=== PATIENT | female | born 1950 | race Caucasian/White ===

== ENCOUNTER 2020-07-19 13:44 | Inpatient (IN) ==
[2020-07-19] MEDS ORDERED: HYDROmorphone 0.5 MG/0.5 ML SYRINGE IV PRN (14:02)
[2020-07-19] MEDS ORDERED: ONDANSETRON 4 MG/2 ML VIAL IV ONE (14:02)
[2020-07-19] MEDS ORDERED: 0.9 % SODIUM CHLORIDE 1,000 ML IV ONE (14:02)
--- NOTE | 2020-07-19 14:27 | XRay Report ---
CLINICAL INFORMATION: hip fracture, fall COMPARISON: None. FINDINGS: The heart is moderately enlarged. Mediastinum and pulmonary vessels are normal. Lungs are clear. No effusions or evidence of pneumothorax. No evidence of fracture IMPRESSION: Moderate cardiomegaly. No post traumatic change or acute pulmonary disease Interpreted and Authenticated by: Patrick Polk 07/19/20
[2020-07-19 14:57] LABS: Basophils # (Auto) 0.01 K/mcL (0.00-0.20); Basophils % (Auto) 0.1 % (0.0-2.0); Eosinophils # (Auto) 0 K/mcL (0.00-0.70); Eosinophils % (Auto) 0 % (0.0-7.0); Hematocrit 41.4 % (36.0-48.0); Hemoglobin 13.5 g/dL (12.0-15.0); Lymphocytes # (Auto) 0.62 K/mcL (1.50-4.80); Lymphocytes % (Auto) 4.6 % (15.0-49.0); Mean Cell Volume 92.6 fL (80.0-100.0); Mean Corpuscular HGB Conc 32.6 g/dL (31.0-36.0); Monocytes # (Auto) 0.54 K/mcL (0.10-0.90); Neutrophils % (Auto) 91.3 % (38.0-78.0); Platelet Count 281 K/mcL (140-440); RBC 4.47 M/mcL (4.00-5.20); WBC 13.6 K/mcL (4.5-11.0)
--- NOTE | 2020-07-19 15:10 | Emergency Department Note ---
Fall HPI General Chief Complaint: Fall Stated Complaint: Right Hip Pain Time Seen by Provider: 07/19/20 14:01 Source: patient Mode of arrival: ambulatory History of Present Illness HPI Narrative: Narrative: 70-year-old female comes in complaining of a right hip fracture after a fall this morning. She has some known balance issues and trip ped in her hallway falling onto her right hip. Her was there and brought her to [facility] urgent care. They did a CT scan and advised her she had broken her hip. They called Dr. Coleman who advised her to come here. Patient tells me she has osteoporosis but is not on any other home medicines. She is legally blind as well. She denies any recent illness or fever Related Data Home Medications Medication Instructions Recorded Confirmed No Known Home Meds 07/19/20 07/19/20 Allergies Allergy/AdvReac Type Severity Reaction Status Date / Time Penicillins Allergy Mild Rash Verified 07/19/20 13:46 aspirin Allergy Unknown Other Verified 07/19/20 13:47 NSAIDS (Non-Steroidal Allergy Unknown Other Verified 07/19/20 13:47 Anti-Inflamma Review of Systems ROS ROS Narrative: Narrative: All systems ED: reviewed and negative except as stated. [facility] Narrative Patient History Narrative: Narrative: Medical/Surgical/Family History All Active Problems (Updated 07/19/20 @ 15:28 by Favio Combs MD) Closed fracture of right hip (Acute) Acute hypokalemia (Acute) Osteoporosis (Acute) Surgical History (Updated 07/19/20 @ 15:07 by Favio Combs MD) History of hysterectomy (Acute) Social History Smoking Status: Never smoker Exam Narrative Narrative: Narrative: No acute distress resting. Normocephalic atraumatic. Conjunctive are clear sclerae white nonicteric. She is blinking her eyelids frequently. Does not look like she is focusing on me as her vision is impaired, but extraocular movements are intact. No nasal discharge or congestion. Oropharynx pink and moist. Tongue is midline. Face is symmetrical. Heart is regular rate and rhythm no murmur appreciated. Lungs are clear to auscultation bilaterally without wheezes rales rhonchi or respiratory distress. Diminished soft nontender nondistended. Palpation of the right hip area does show tenderness. Posterior tibialis pulse on the right is normal. She is alert oriented able to answer questions appropriately. I do not see any focal neurologic deficits besides her impaired vision Course Vital Signs Vital signs: Vital Signs Temperature 97.5 F 07/19/20 13:48 Pulse Rate 105 H 07/19/20 13:48 Respiratory Rate 18 07/19/20 13:48 Blood Pressure 146/90 07/19/20 13:48 Pulse Oximetry (%) 94 07/19/20 13:48 Temperature 97.5 F 07/19/20 13:48 Pulse Rate 112 H 07/19/20 15:25 Respiratory Rate 18 07/19/20 13:48 Blood Pressure 141/96 07/19/20 15:25 Pulse Oximetry (%) 90 07/19/20 15:25 MDM MDM Narrative Medical decision making narrative: Narrative: Right hip fracture. Briefly discussed with Dr. Coleman. He advised me he would contact anesthesia to find out when we could take the patient back for surgery. She last ate about 10:00 AM. She declined pain medicine but I did write for Dilaudid Zofran IV fluids. Routine laboratory chest x-ray EKG also ordered. Dr. Coleman wanted plain film x-rays of the right hip so these are ordered as well X-ray confirms femoral neck fracture on the right. Mild leukocytosis consistent with stress. She does have some mild hypokalemia as well ordered K rider. EKG shows some chronic findings. Patient will go back to the operating room now Medical Records Medical records reviewed: Yes I reviewed the patient's medical records. Medical records narrative: I reviewed CT report from [facility] which showed transcervical femoral neck fracture on the right-this is minimally displaced Lab Data Lab results reviewed: Yes I reviewed the patient's lab results. Result diagrams: 07/19/20 14:22 07/19/20 14:22 Labs: Lab Results 07/19/20 07/19/20 Range/Units 14:22 14:22 WBC 13.6 H (4.5-11.0) K/mcL RBC 4.47 (4.00-5.20) M/mcL Hgb 13.5 (12.0-15.0) g/dL Hct 41.4 (36.0-48.0) % MCV 92.6 (80.0-100.0) fL MCH 30.2 (26.0-34.0) pg MCHC 32.6 (31.0-36.0) g/dL RDW 14.0 (11.5-14.5) % Plt Count 281 (140-440) K/mcL MPV 10.0 (7.4-10.4) fL Neut % (Auto) 91.3 H (38.0-78.0) % Lymph % (Auto) 4.6 L (15.0-49.0) % Lincoln % (Auto) 4.0 (1.0-12.0) % Eos % (Auto) 0 (0.0-7.0) % Baso % (Auto) 0.1 (0.0-2.0) % Lymph # (Auto) 0.62 L (1.50-4.80) K/mcL Lincoln # (Auto) 0.54 (0.10-0.90) K/mcL Eos # (Auto) 0 (0.00-0.70) K/mcL Baso # (Auto) 0.01 (0.00-0.20) K/mcL Absolute Neutrophils 12.45 H (1.80-8.00) K/mcL Sodium 138 (133-145) mmol/L Potassium 2.9 L* (3.3-5.1) mmol/L Chloride 100 (96-108) mmol/L Carbon Dioxide 23 (22-30) mmol/L Anion Gap 15.0 (8.0-16.0) BUN 9 (8-23) mg/dL Creatinine 0.6 (0.6-1.1) mg/dL GFR Calculation 93 Glucose 117 H (70-105) mg/dL Calcium 9.2 (8.6-10.4) mg/dL Total Bilirubin 0.3 (0.1-1.0) mg/dL AST 30 (<32) U/L ALT 25 (<40) U/L Alkaline Phosphatase 84 (39-117) U/L Total Protein 7.3 (5.9-8.4) gm/dL Albumin 4.3 (3.2-5.2) gm/dL Globulin 3.0 (2.2-3.7) gm/dL Albumin/Globulin Ratio 1.4 (1.0-2.3) Radiology Data Radiology results reviewed: Yes I reviewed the patient's radiology results. Radiology results narrative: X-rays of the right hip show femoral neck fracture EKG Data EKG #1: EKG attestation: Yes I reviewed and interpreted this EKG. and Yes There are no EKG findings of acute coronary syndrome EKG results narrative: Sinus rhythm with some mild tachycardia. Left axis deviation. Consider biatrial abnormality Discharge Plan Patient/Caregiver Discharge Instructions Pt seen by SEMICONDUCTOR ENGINEER/PA only: No Clinical Impression: Acute hypokalemia Closed fracture of right hip Qualifiers: Encounter type: initial encounter Qualified Code(s): S72.001A - Fracture of unspecified part of neck of right femur, initial encounter for closed fracture Osteoporosis Qualifiers: Osteoporosis type: unspecified Presence of current pathological fracture: with current pathological fracture Encounter type: initial encounter Qualified Code(s): M80.00XA - Age-related osteoporosis with current pathological fracture, unspecified site, initial encounter for fracture Patient Disposition: Xfer As Inpt ([facility]) Condition: Fair Follow up with: Ravi Coleman MD [Physician] - Chanda Tatum MD [Primary Care Provider] - Prescriptions: No Action No Known Home Meds RF: 0
[2020-07-19 15:27] LABS: ALT/SGPT 25 U/L (<40); AST/SGOT 30 U/L (<32); Albumin 4.3 gm/dL (3.2-5.2); Albumin/Globulin Ratio 1.4 (1.0-2.3); Alkaline Phosphatase 84 U/L (39-117); Bilirubin,Total 0.3 mg/dL (0.1-1.0); Blood Urea Nitrogen 9 mg/dL (8-23); Calcium 9.2 mg/dL (8.6-10.4); Carbon Dioxide 23 mmol/L (22-30); Chloride 100 mmol/L (96-108); Glomerular Filtration Rate 93; Glucose 117 mg/dL (70-105)
[2020-07-19] MEDS ORDERED: POTASSIUM CHLORIDE 20 MEQ in DEXTROSE 5% IN WATER 250 ML IV ONE (15:28)
[2020-07-19] MEDS ORDERED: LIDOCAINE HCL/PF 100 MG/5 ML SYRINGE IV ONE (16:15)
[2020-07-19] MEDS ORDERED: DEXAMETHASONE 10 MG/ML VIAL ONE (16:15)
[2020-07-19] MEDS ORDERED: fentaNYL 100 MCG/2 ML VIAL IV ONE (16:15)
[2020-07-19] MEDS ORDERED: ONDANSETRON 4 MG/2 ML VIAL ONE (16:15)
[2020-07-19] MEDS ORDERED: MIDAZOLAM 2 MG/2 ML VIAL ONE (16:15)
[2020-07-19] MEDS ORDERED: PHENYLEPHRINE 10 MG/ML VIAL ONE (16:15)
[2020-07-19] MEDS ORDERED: ceFAZolin 2 GM in DEXTROSE 5% IN WATER 50 ML IV SCH (16:15)
[2020-07-19] MEDS ORDERED: KETAMINE 100 MG/ML ML ONE (16:15)
[2020-07-19] MEDS ORDERED: POTASSIUM CHLORIDE 20 MEQ/10 ML VIAL IV ONE (16:15)
[2020-07-19] MEDS ORDERED: GLYCOPYRROLATE 0.2 MG/ML VIAL IV ONE (16:15)
[2020-07-19] MEDS ORDERED: PROPOFOL 200 MG/20 ML VIAL IV ONE (16:15)
--- NOTE | 2020-07-19 16:37 | XRay Report ---
CLINICAL INFORMATION: fall and fracture COMPARISON: Pelvic CT 07/19/2020 1232 hours FINDINGS: Mildly impacted nondisplaced transcervical fracture through the right femoral neck is again seen. No change. There is mild degeneration right hip. Soft tissues normal. IMPRESSION: Nondisplaced transcervical fracture - right femoral neck Interpreted and Authenticated by: Patrick Polk 07/19/20
[2020-07-19] MEDS ORDERED: IPRATROPIUM/ALBUTEROL 3 ML AMPUL.NEB NEB PRN (16:42)
--- NOTE | 2020-07-19 16:43 | History and Physical Report ---
DATE OF ADMISSION: 07/19/2020 CHIEF COMPLAINT: Right hip pain. HISTORY: This is a 70-year-old female who is legally blind who ran into the wall and fell and hurt her right hip. She had severe pain and inability to bear weight. Her carried her to their car and took her to [facility]. They ordered a CT scan which showed a nondisplaced hip fracture and she was transferred to [facility] for orthopedic care. Her pain is worse with movement, better with immobility. She denies significant other injuries, denies loss of consciousness. No fever. 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 She has osteoporosis. PAST SURGICAL HISTORY: Positive for hysterectomy. MEDICATIONS: She takes no home medications. ALLERGIES: 1. PENICILLIN which causes a rash. 2. She is also instructed not to take ASPIRIN or NSAIDs due to the PXE. SOCIAL HISTORY: No tobacco use. She is and lives with her . REVIEW OF SYSTEMS: Negative except per the HPI. PHYSICAL EXAM: VITALS: In the ER, temperature was 97.5, pulse 105, respirations 18, blood pressure 146/90, pulse ox 94%. GENERAL: She appears her stated age in no acute distress. She is oriented to person and place. Mood and affect are appropriate. EXTREMITIES: Bilateral upper extremities and left lower extremity show no obvious evidence of trauma or injury and are normal to inspection, range of motion, stability and strength. Her right lower extremity does show her holding it in a flexed position. She has extreme discomfort with any movement of the hip. Range of motion is limited secondary to pain. There is no gross instability noted. Her strength is 3/5 with toe flexion and extension. Pedal pulse is palpable. Sensation to light touch is grossly intact. HEART: Regular rhythm. LUNGS: Clear. IMAGING: Her x-ray reviewed shows a minimally-displaced femoral neck fracture on the right. CT scan also confirms this. IMPRESSION: Right minimally-displaced femoral neck fracture in a 70-year-old female. PLAN: I discussed with her that I would recommend proceeding with percutaneous screw fixation of the right minimally-displaced femoral neck fracture. Risks of surgery include, but not limited to, bleeding; infection; injuring nerves, blood vessels, other surrounding structures; anesthetic risks; nonunion or malunion of the fracture; failure of hardware fixation; possibility of going on to develop avascular necrosis which might require total hip arthroplasty in the future; DVT and pulmonary embolus risks. Since she is not to take any blood thinners due to her PXE, I discussed with her I am concerned doing nothing as a hip fracture is a significant risk for blood clot. She does state that prior to knowing her diagnosis of PXE that she took aspirin regularly. Therefore, I would recommend we do an 81 mg aspirin twice a day postop to try and protect her from DVT without increasing her risk of going totally blind. We will proceed surgically as soon as possible. VISHAL:liset Job ID: [id number] Doc ID: [id number] Ravi Coleman MD
[2020-07-19] MEDS ORDERED: LACTATED RINGERS 250 ML IV PRN (16:48)
[2020-07-19] MEDS ORDERED: FLUMAZENIL 0.1 MG/ML ML IV PRN (16:48)
[2020-07-19] MEDS ORDERED: fentaNYL 100 MCG/2 ML VIAL IV PRN (16:48)
[2020-07-19] MEDS ORDERED: NALOXONE HCL 0.4 MG/ML VIAL IV PRN (16:48)
[2020-07-19] MEDS ORDERED: ACETAMINOPHEN 1,000 MG/100 ML BAG IV ONE (16:48)
[2020-07-19] MEDS ORDERED: LACTATED RINGERS 1,000 ML IV SCH (17:00)
[2020-07-19] MEDS ORDERED: BENZOCAINE/MENTHOL 1 LOZENGE PO PRN (17:01)
[2020-07-19] MEDS ORDERED: MAGNESIUM HYDROXIDE 30 ML ORAL.SUSP PO PRN (17:01)
[2020-07-19] MEDS ORDERED: FLEETS ADULT ENEMA PR PRN (17:01)
[2020-07-19] MEDS ORDERED: BISACODYL 10 MG SUPP.RECT PR PRN (17:01)
[2020-07-19] MEDS ORDERED: POLYETHYLENE GLYCOL 3350 17 GM PACKET PO PRN (17:01)
--- NOTE | 2020-07-19 17:01 | Brief Operative Note ---
Brief Operative Note Date of procedure: 07/19/20 Pre-op diagnosis: R minimally displaced femoral neck fracture Post-op diagnosis: same Procedure: Right percutaneous hip pinning Grafts/Implants: Yes (3 6.5 cannulated screws) Anesthesia: GLMA Findings: as above Complications: none Surgeon: Ravi Coleman Bin Operator: Braydon Horne Estimated blood loss (cc): 30 Specimens Removed/Pathology: none sent Condition: stable Disposition: PACU
[2020-07-19] MEDS ORDERED: morphine 4 MG/ML VIAL IV PRN (17:07)
[2020-07-19] MEDS ORDERED: ONDANSETRON 4 MG/2 ML VIAL IV PRN (17:07)
[2020-07-19] MEDS ORDERED: KETOROLAC 15 MG/ML VIAL IV PRN (17:07)
--- NOTE | 2020-07-19 17:52 | XRay Report ---
CLINICAL INFORMATION: RIGHT HIP PINNING COMPARISON: None. FINDINGS: Multiple digital images from the OR are submitted. Transcervical fracture of the hip has been reduced to anatomic alignment and is transfixed by three screws. Right hip joint is normal in width and alignment. IMPRESSION: ORIF transcervical fracture of the right femoral neck now anatomically aligned Interpreted and Authenticated by: Patrick Polk 07/19/20
[2020-07-19] MEDS: 0.9 % SODIUM CHLORIDE 1,000 ML IV SCH (18:02)
[2020-07-19] MEDS: ASPIRIN 81 MG TAB.CHEW PO SCH (20:59)
[2020-07-19] MEDS: 0.9 % SODIUM CHLORIDE 10 ML SYRINGE IV SCH (20:59)
[2020-07-19] MEDS: DOCUSATE SODIUM 100 MG CAPSULE PO SCH (20:59)
[2020-07-19] MEDS: SENNOSIDES 1 TABLET PO SCH (21:00)
[2020-07-19] MEDS: ceFAZolin 1 GM VIAL IV SCH (23:30)
[2020-07-20] MEDS: 0.9 % SODIUM CHLORIDE 1,000 ML IV SCH ×2 (06:29→19:56)
[2020-07-20] MEDS: oxyCODONE/APAP 5/325MG TABLET PO PRN ×2 (07:39→18:49)
[2020-07-20] MEDS: ASPIRIN 81 MG TAB.CHEW PO SCH ×2 (07:39→19:56)
[2020-07-20] MEDS: ceFAZolin 1 GM VIAL IV SCH (07:40)
[2020-07-20] MEDS: DOCUSATE SODIUM 100 MG CAPSULE PO SCH ×2 (07:42→19:55)
[2020-07-20] MEDS: 0.9 % SODIUM CHLORIDE 10 ML SYRINGE IV SCH ×2 (07:42→19:55)
--- NOTE | 2020-07-20 07:59 | Discharge Summary ---
Discharge Provider Provider Patient information: Note initiated : 07/20/20 at 7:58 am Service Date, if different from initiated Date: [] Patient: Tania Whiting 70 y/o F admitted on 07/19/20 for Right Hip Pain. Chief Complaint: mild pain Date of admission: 07/19/20 17:55 Discharge date: 07/20/20 Primary care physician: Chanda Tatum Consults: 07/19/20 Consult to Physician [CONS] Stat Comment: Consulting Provider: Ravi Coleman Reason For Exam: Physician to Consult COURSE Hospital Course Hospital course: Pt was admitted for a R hip non-displaced femoral neck fx. Fx was pinned by ortho. Pt discharged post-op day 1. Given the option to stay one more night if she did not feel comfortable. Pt presented with hypokalemia. Was given K+ during surgery. labs rechecked prior to discharge. Pt should f/u with PCP. Discharge diagnosis: R hip femoral neck non-displaced fx. Hypokalemia. Time Spent with Patient Time attestation: Total time spent providing and/or coordinating discharge services: Physical Examination Narrative Exam Narrative: bandages c/d/i nvi-distal Exam Clean and dry: Yes Weight bearing status: as tolerated DC Instructions-General Patient Instructions Dressing Care: May shower in 2 days and Other Additional Dressing Instructions: daily dry dressing Discharge Plan Patient/Caregiver Discharge Instructions Activity: as per physical therapy and increase activity as tolerated Diet: Regular Diet Prescriptions: New aspirin 81 mg tablet,delayed release (DR/EC) 81 mg PO BID Qty: 60 RF: 0 hydrocodone-acetaminophen 5-325 mg tablet 1 tab PO Q6H PRN (Reason: pain) Qty: 20 RF: 0 Continued Centrum Silver Women 8 mg iron-400 mcg-300 mcg Tablet 1 tab PO QDAY RF: 0 Calcium 600 tablet 600 mg PO DAILY RF: 0 glucosamine HCl tablet PO DAILY RF: 0 Vitamin B-12 PO DAILY RF: 0 Other Ambulatory Orders: Physical Therapy Discharge Order (Routine) Location: None Selected Ordered By: Braydon Shirley (ONCE) Location: None Selected Ordered By: Braydon Horne Follow Up Plan Follow up with: Ravi Coleman MD [Physician] - Chanda Tatum MD [Primary Care Provider] - Braydon Horne PA-C [Physician Chainstitch Zipper Setter] - Patient Disposition: Home, Self-Care Prognosis: Fair Rehab Potential: Good Overall status at discharge: patient is progressing back to baseline Discharge Orders: Discharge Order (Routine); Ordered 07/20/20 Ordered By: Braydon Horne Discharge Comment: today if PT goes well, or 07/21/20 Pending Pending Pending: Resuscitation Status Full Code Diet Regular Diet Start Sejal Jul 19 1703 Aspirin (Aspirin) 81 mg PO BID [facility] Last Admin: 07/20/20 07:39 Dose: 81 mg Documented by: Admin: 07/19/20 20:59 Dose: 81 mg Documented by: JACOB Cefazolin Sodium (Ancef) 1 gm IV Q8H [facility] Stop: 07/20/20 08:01 Last Admin: 07/20/20 07:40 Dose: 1 gm Documented by: Admin: 07/19/20 23:30 Dose: 1 gm Documented by: JACOB Docusate Sodium (Colace) 100 mg PO BID [facility] Last Admin: 07/20/20 07:42 Dose: Not Given Documented by: Admin: 07/19/20 20:59 Dose: 100 mg Documented by: JACOB Sodium Chloride (Sodium Chloride 0.9%) 1,000 mls @ 75 mls/hr IV .[id number] [facility] Last Infusion: 07/20/20 07:37 Dose: 75 mls/hr Documented by: Admin: 07/20/20 06:29 Dose: Not Given Documented by: Admin: 07/19/20 18:02 Dose: 75 mls/hr Documented by: ROSE Oxycodone/Acetaminophen (Percocet 5-325 Mg) 0 tab PO Q4HP PRN; Protocol PRN Reason: Per Pain Protocol Last Admin: 07/20/20 07:39 Dose: 0.5 tab Documented by: KEATON Senna (Senokot) 2 tab PO HS [facility] Last Admin: 07/19/20 21:00 Dose: Not Given Documented by: JACOB Sodium Chloride (Saline Flush) 10 ml IV Q12 [facility] Last Admin: 07/20/20 07:42 Dose: Not Given Documented by: Admin: 07/19/20 20:59 Dose: Not Given Documented by: JACOB Throat Lozenges (Cepacol) 1 lozenge PO PRN PRN PRN Reason: Sore Throat Last Admin: 07/20/20 03:17 Dose: 1 lozenge Documented by: JACOB Shift Summary 07/20/20 03:23 Shift Summary by Dianne Glynn Addendum entered by Dianne Glynn R.N. 07/20/20 05:27: Dressing to right hip, CDI Addendum entered by Dianne Glynn R.N. 07/20/20 03:30: Patient received 20 meq K rider for K+ 2.9. Original Note: AOX4. Legally blind. Patient has not been out of bed and is very reluctant to much moving and wouldn't allow being turned. 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 She is willing to take the aspirin for prevention but was not willing to try toradol for pain. Offered percocet for pain and she declined only wanting tylenol which was not on the mar but told her I could call the doctor to see about an order and she said not to worry about it tonight. VSS on 2.5L which has not been turned down to 1.5L. Patient has hyatt, foot pumps, and ice packs. Only skin issue is an abrasion to the left great toe. Will update at bedside. Initialized on 07/20/20 03:23 - END OF NOTE
[2020-07-20 08:57] LABS: ALT/SGPT 25 U/L (<40); AST/SGOT 38 U/L (<32); Albumin 3.6 gm/dL (3.2-5.2); Albumin/Globulin Ratio 1.5 (1.0-2.3); Alkaline Phosphatase 67 U/L (39-117); Bilirubin,Total 0.4 mg/dL (0.1-1.0); Blood Urea Nitrogen 7 mg/dL (8-23); Calcium 8.5 mg/dL (8.6-10.4); Carbon Dioxide 23 mmol/L (22-30); Chloride 99 mmol/L (96-108); Globulin 2.4 gm/dL (2.2-3.7); Glomerular Filtration Rate 93; Glucose 112 mg/dL (70-105)
[2020-07-20] MEDS: ACETAMINOPHEN 325 MG TABLET PO PRN ×2 (12:51→23:23)
[2020-07-20] MEDS: SENNOSIDES 1 TABLET PO SCH (19:55)
[2020-07-21] MEDS: ACETAMINOPHEN 325 MG TABLET PO PRN (05:02)
[2020-07-21] MEDS: oxyCODONE/APAP 5/325MG TABLET PO PRN ×2 (06:03→11:56)
[2020-07-21] MEDS: ASPIRIN 81 MG TAB.CHEW PO SCH (08:56)
[2020-07-21] MEDS: DOCUSATE SODIUM 100 MG CAPSULE PO SCH (09:00)
[2020-07-21] MEDS: 0.9 % SODIUM CHLORIDE 10 ML SYRINGE IV SCH (09:02)
== END 2020-07-21 12:35 | disposition home or self-care (01) | DRG 482 ==
LOC: ED 13:44 → SUR 15:42 → MEDSUR 17:55
PROVIDERS: ADMIT Orthopaedic Surgery; ATTEND Orthopaedic Surgery